=== PATIENT | male | born 1970 | race Caucasian/White ===

== ENCOUNTER 2017-02-25 11:35 | Day surgery (SDC) | payer OTHER ==
[2017-02-24 12:54] VITALS: BMI 28.3
[~2017-02-25] VITALS: Ht 165.1 cm; Wt 79.7 kg
[2017-02-25] VITALS (10 sets, daily range): BP systolic 141–169; BP diastolic 71–90; PULSE 70–98; RESP 14–18; Ht 165.1 cm; Wt 79.7 kg
[~2017-02-25 11:35] MED LIST: CEFAZOLIN 2 GM/50 ML (PMX) 50 ML IVPB SCH; SOD CHLORIDE 0.9% 1,000 ML IV SCH
[2017-02-25] MEDS ORDERED: HYDR12.58 PO (12:30)
[2017-02-25] MEDS ORDERED: LISI10TA2 PO (12:30)
[2017-02-25] MEDS ORDERED: AMLO5TAB4 PO (12:31)
[2017-02-25 12:55] LABS: BASOPHILS % 0.3 % (0.0-2.0); EOSINOPHILS # 0.1 10^3/ul (0.0-0.5); EOSINOPHILS % 0.9 % (0.0-7.0); HEMATOCRIT 43.7 % (42.0-52.0); HEMOGLOBIN 14.8 g/dl (14.0-18.0); LYMPHOCYTES # 1.7 10^3/ul (0.8-2.9); LYMPHOCYTES % 19.7 % (15.0-51.0); MEAN CORPUSCULAR HEMOGLOBIN 28.2 pg (29.0-33.0); MEAN CORPUSCULAR HGB CONC 33.9 g/dl (32.0-37.0); MEAN CORPUSCULAR VOLUME 83.2 fl (82.0-101.0); MONOCYTE # 0.7 10^3/ul (0.3-0.9); NEUTROPHILS % 70.4 % (39.0-77.0); PLATELET COUNT 313 10^3/UL (140-415); RED BLOOD COUNT 5.25 10^6/ul (4.70-6.10); RED CELL DISTRIBUTION WIDTH 13.4 % (11.5-14.5); WHITE BLOOD COUNT 8.6 10^3/ul (4.8-10.8)
[2017-02-25 13:06] LABS: INR 0.92; PROTIME 12.4 Sec (12.2-14.2)
[2017-02-25 13:07] LABS: PARTIAL THROMBOPLASTIN TIME 28.4 Sec (25.0-35.0)
[2017-02-25 13:11] LABS: ALBUMIN 4.5 g/dl (3.3-4.9); ALBUMIN/GLOBULIN RATIO 1.21; BILIRUBIN,INDIRECT 0.7 mg/dl (0-1.1); BILIRUBIN,TOTAL 0.7 mg/dl (0.2-1.3); CALCIUM 9.5 mg/dl (8.4-10.2); CREATININE 0.83 mg/dl (0.61-1.24); POTASSIUM 3.7 mmol/L (3.5-5.1); TOTAL PROTEIN 8.2 g/dl (6.1-8.1)
[2017-02-25] MEDS ORDERED: FENTAnyl 50 MCG/ML VIAL ONE ×2 (13:13→14:54)
[2017-02-25] MEDS ORDERED: PROPOFOL 20 ML ONE ×2 (13:13→13:39)
[2017-02-25] MEDS ORDERED: CEFAZOLIN 1 GM INJ ONE (13:13)
[2017-02-25] MEDS ORDERED: MIDAZOLAM 1 MG/ML 2 ML INJ ONE (13:13)
[2017-02-25] MEDS ORDERED: ROPIVACAINE 0.5 % 30 ML VIAL ONE (13:14)
[2017-02-25] MEDS ORDERED: BUPIVACAINE 0.25% (MPF) 30 ML INJ ONE (13:31)
[2017-02-25] MEDS ORDERED: ROCURONIUM 50 MG INJ ONE (14:09)
[2017-02-25] MEDS ORDERED: ONDANSETRON 4 MG INJ ONE ×2 (14:10→14:54)
[2017-02-25] MEDS ORDERED: METOCLOPRAMIDE 10 MG INJ ONE (14:10)
[2017-02-25] MEDS ORDERED: KETOROLAC 30 MG INJ ONE (14:11)
[2017-02-25] MEDS ORDERED: SUGAMMADEX SODIUM 200 MG/2 ML VIAL IV ONE (14:11)
[2017-02-25] MEDS ORDERED: DEXAMETHASONE 4 MG/ML 1 ML INJ ONE (14:11)
[2017-02-25] MEDS ORDERED: FENTAnyl 50 MCG/ML VIAL IV PRN ×2 (14:30)
[2017-02-25] MEDS ORDERED: LABETALOL HCL 20MG INJ IV PRN (14:30)
[2017-02-25] MEDS ORDERED: hydrALAzine 20 MG INJ IV PRN (14:30)
[2017-02-25] MEDS ORDERED: METOCLOPRAMIDE 10 MG INJ IV PRN (14:30)
[2017-02-25] MEDS ORDERED: HYDROmorphONE (0.2 MG/ML) 10ML SYG IV PRN ×3 (14:30)
[2017-02-25] MEDS ORDERED: MEPERIDINE 25 MG INJ IV PRN (14:30)
[2017-02-25] MEDS ORDERED: DIPHENHYDRAMINE 50 MG INJ IV PRN (14:30)
[2017-02-25] MEDS ORDERED: EPHEDrine SULFATE 50 MG/5 ML SYG IV PRN (14:30)
[2017-02-25] MEDS ORDERED: ONDANSETRON 4 MG INJ IV PRN (14:30)
[2017-02-25] MEDS ORDERED: OXYCODONE/ACETAMINOPHEN (5/325) TAB PO PRN ×2 (14:30)
--- NOTE | 2017-02-25 14:50 | OPR ---
Date/Time of Note Date/Time of Note DATE: 02/25/17 TIME: 14:43 Operative Report Procedure Date: Feb 25, 2017 Preoperative Diagnosis incarcerated right inguinal hernia Postoperative Diagnosis incarcerated indirect and direct right inguinal hernia Operation Performed 1. open incarcerated indirect and direct right inguinal hernia repair with large ultra pro hernia system mesh 2. therapeutic injection of subcutaneous marcaine cpt code 94759 Surgeon: Salud SMITH Anesthesia Type: general Estimated Blood Loss: 0 - 10 ml's Specimen: none Grafts/Implants ultra pro hernia system large mesh Complications: no Indications This is a 47-year-old male with a right inguinal hernia. He requires surgical repair. Risks alternatives benefits and percent were discussed the patient. Patient's best understanding consents to the operation. Procedure Description Patient taken to the OR and prepped and draped in usual sterile fashion. Surgical timeout was performed. IV antibiotics are given. Right inguinal oblique incision is made with a 10 blade. Dissection cautery was carried onto the axillary fascia. This is open with a 15 blade. 6 oblique fascia is open further with Metzenbaum scissors medial inferior lateral superiorly. Cord structures identified and encircled with a Edmund drain. There appeared an incarcerated indirect and direct hernia both of these were reduced. The pantaloon hernia was reduced. By first putting the disc portion of the ultra pro hernia system mesh and the indirect hernia space. This was bolstered in space with a running 0 Prolene from the pubic tubercle along the shelving edge of inguinal ligament. Interrupted 3-0 Vicryl was used to affix the disc portion to the internal oblique fascia. Onlay mesh is secured in a similar fashion with a running 0 Prolene to the pubic tubercle along the shelving edge of inguinal ligament. This is affixed to the internal oblique with interrupted 3-0 Vicryl was covering the direct hernia. Strep to created and reapproximated with interrupted 0 Prolene around the cord structures to recreate the inguinal ring. Externally fascia is closed with running 3-0 Vicryl. Joe's fascia was closed with interrupted 3-0 Vicryl. Skin is closed with skin willow. Therapeutic subcutaneous Marcaine is injected throughout the incision site. Dressings were applied. Salud SMITH Feb 25, 2017 14:50
[2017-02-25] MEDS ORDERED: hydrALAzine 20 MG INJ ONE (14:54)
[2017-02-25] MEDS ORDERED: MEPERIDINE 25 MG INJ ONE (14:54)
[2017-02-25] MEDS ORDERED: OXYCODONE/ACETAMINOPHEN (5/325) TAB ONE (14:54)
[2017-02-25] MEDS ORDERED: HYDROCODONE/APAP (5/325) TAB PO ONE (15:00)
[2017-02-25] MEDS: FENTAnyl 50 MCG/ML VIAL IV PRN ×4 (15:08→15:25)
== END 2017-02-25 16:22 | disposition home or self-care (01) ==
LOC: SDS 11:35
PROVIDERS: ATTEND Surgery
DX: K40.30 Unilateral inguinal hernia, with obstruction, without gangrene, not specified as recurrent (principal); I10 Essential (primary) hypertension
CPT/HCPCS: 49507; 80053; 85025; 85610; 85730; C1781; J0360; J0690; J1100; J1885; J2175; J2250; J2405; J2765; J2795; J3010